=== PATIENT | female | born 1995 | race Asian ===

== ENCOUNTER 2018-08-23 15:41 | Emergency (ER) | payer OTHER ==
[2018-08-23 16:26] LABS: ADD MAN DIFF? NO
[2018-08-23 16:31] LABS: BASOPHIL # 0.1 10^3/ul (0.0-0.1); BASOPHILS % 0.5 % (0.0-2.0); EOSINOPHILS % 0.3 % (0.0-7.0); HEMATOCRIT 42.5 % (37.0-47.0); LYMPHOCYTES # 1.9 10^3/ul (0.8-2.9); LYMPHOCYTES % 19.3 % (15.0-51.0); MEAN CORPUSCULAR HEMOGLOBIN 29.2 pg (29.0-33.0); MEAN CORPUSCULAR HGB CONC 32.9 g/dl (32.0-37.0); MEAN CORPUSCULAR VOLUME 88.7 fl (82.0-101.0); MEAN PLATELET VOLUME 9.2 fl (7.4-10.4); MONOCYTE # 0.7 10^3/ul (0.3-0.9); MONOCYTES % 7.2 % (0.0-11.0); NEUTROPHILS % 72.6 % (39.0-77.0); PLATELET COUNT 312 10^3/UL (140-415); RED BLOOD COUNT 4.79 10^6/ul (4.20-5.40); RED CELL DISTRIBUTION WIDTH 11.9 % (11.5-14.5)
[2018-08-23 16:31] LABS: WHITE BLOOD COUNT 9.6 10^3/ul (4.8-10.8)
[2018-08-23] MEDS: LORAZEPAM 1 MG TAB PO (16:35)
[2018-08-23 16:50] LABS: ANION GAP 10 (5-13); BLOOD UREA NITROGEN 11 mg/dl (7-20); CALCIUM 9.9 mg/dl (8.4-10.2); CARBON DIOXIDE 29 mmol/L (21-31); CHLORIDE 101 mmol/L (97-110); CREATININE 0.75 mg/dl (0.44-1.00); Estimated GFR > 60 mL/min (>60); GLUCOSE 109 mg/dl (70-220); POTASSIUM 4.3 mmol/L (3.5-5.1); SODIUM 140 mmol/L (135-144)
[2018-08-23 16:52] LABS: INR 0.94; PROTIME 12.7 Sec (11.9-14.9)
[2018-08-23 16:53] LABS: PARTIAL THROMBOPLASTIN TIME 30.8 Sec (23.0-35.0)
== END 2018-08-23 17:19 | disposition home or self-care (01) ==
LOC: FTE 15:41
DX: F41.9 Anxiety disorder, unspecified (principal); R53.1 Weakness
CPT/HCPCS: 36415; 70450; 80048; 81025; 85025; 85610; 85730; 87400; 99284-25